=== PATIENT | male | born 2000 | race Caucasian/White ===

== ENCOUNTER 2022-03-17 22:09 | Emergency (ER) | payer BC ==
[2022-03-17] MEDS: LORazepam 2 MG/ML SDV IM STA (22:42)
[2022-03-18 00:17] VITALS: BP 124/78; PULSE 56
== END 2022-03-18 00:14 | disposition home or self-care (01) ==
LOC: FB.ED 22:09
DX: R07.81 Pleurodynia (principal); F41.0 Panic disorder [episodic paroxysmal anxiety]
CPT/HCPCS: 71111; 96372; 99283; 99284; J2060